=== PATIENT | female | born 2005 | race Asian ===

== ENCOUNTER 2024-03-17 10:16 | Emergency (ER) | payer MEDICAID ==
[~2024-03-17] VITALS: Ht 170.2 cm; Wt 29.5 kg
[2024-03-17 10:30] VITALS: BP_SYST 105; PULSE 70; RESP 19; TEMP 97.7; O2SAT 97
[2024-03-17 10:53] LABS: BASOPHILS % (AUTO) 0.5 % (0.0-2.0); EOSINOPHILS # (AUTO) 0.2 K/uL (0.0-0.4); EOSINOPHILS % (AUTO) 3.7 % (0.0-4.0); HEMATOCRIT 36.2 % (36-48); HEMOGLOBIN 12.3 g/dL (12.0-16.0); LYMPHOCYTES # (AUTO) 2.1 K/uL (1.0-5.5); LYMPHOCYTES % (AUTO) 32.5 % (20.5-51.5); MEAN CORPUSCULAR HEMOGLOBIN 29 pg (27-31); MEAN CORPUSCULAR HGB CONC 34 % (32-36); MEAN CORPUSCULAR VOLUME 85 fL (79.0-98.0); MONOCYTES # (AUTO) 0.5 K/uL (0.0-1.0); MONOCYTES % (AUTO) 7.2 % (1.7-9.3); NEUTROPHILS # (AUTO) 3.6 K/uL (1.8-7.7); NEUTROPHILS % (AUTO) 56.1 % (40.0-70.0); PLATELET COUNT (AUTO) 284 K/uL (130-430); RED BLOOD CELL COUNT(AUTO) 4.26 MIL/uL (4.2-6.2); WHITE BLOOD COUNT (AUTO) 6.5 K/uL (4.8-10.8)
[2024-03-17 10:55] LABS: BILIRUBIN,URINE NEGATIVE (NEGATIVE); BLOOD, URINE 3+ (NEGATIVE); CLARITY/URINE SL CLOUDY (CLEAR); COLOR,URINE YELLOW (YELLOW); GLUCOSE,URINE NEGATIVE (NEGATIVE); KETONES,URINE NEGATIVE (NEGATIVE); LEUKOCYTE ESTERASE ,URINE TRACE (NEGATIVE); NITRITE, URINE NEGATIVE (NEGATIVE); PROTEIN URINE 2+ (NEGATIVE)
[2024-03-17 11:13] LABS: BACTERIA,URINE FEW /HPF (None Seen); MUCUS,URINE 1+ /LPF (None Seen); RBC,URINE 50-80 /HPF (0-3)
[2024-03-17 11:13] LABS: CALCIUM 8.7 mg/dL (8.4-11.0); CREATININE 0.56 mg/dL (0.55-1.30); POTASSIUM 4.1 mmol/L (3.5-5.1)
[2024-03-17 12:51] VITALS: BP_SYST 105; PULSE 70; RESP 19; TEMP 97.7; O2SAT 97
== END 2024-03-17 12:51 | disposition home or self-care (01) ==
LOC: SED 10:16
DX: R10.9 Unspecified abdominal pain (principal); R05.9 Cough, unspecified; R09.89 Other specified symptoms and signs involving the circulatory and respiratory systems
CPT/HCPCS: 36415; 80048; 81000; 81001; 81015; 81025; 85025; 87086; 99284